=== PATIENT | male | born 1985 | race African-American/Black ===

== ENCOUNTER 2017-06-26 13:05 | Emergency (ER) | payer OTHER ==
[2017-06-26] MEDS ORDERED: NORMAL SALINE 1000 ML 1,000 ML IV ONE (13:42)
[2017-06-26 14:08] LABS: ABSOLUTE BASOPHILS # (AUTO) 0.1 10^3/uL (0.0-0.2); ABSOLUTE LYMPHOCYTES (AUTO) 1.3 10^3/uL (0.5-4.7); ABSOLUTE MONOCYTES (AUTO) 0.2 10^3/uL (0.1-1.4); ABSOLUTE NEUT (AUTO) 5.6 10^3/uL (1.7-8.2); BASOPHILS % (AUTO) 0.9 % (0-2); EOSINOPHILS % (AUTO) 0.2 % (0-6); HEMATOCRIT 45.5 % (37.9-51.0); HEMOGLOBIN 15.2 g/dL (13.5-17.0); LYMPHOCYTES % (AUTO) 17.5 % (13-45); MEAN CORPUSCULAR HEMOGLOBIN 29.4 pg (27.0-33.4); MEAN CORPUSCULAR HGB CONC 33.5 g/dL (32.0-36.0); MEAN CORPUSCULAR VOLUME 88 fl (80-97); MONOCYTES % (AUTO) 2.8 % (3-13); PLATELET COUNT 190 10^3/uL (150-450); RED BLOOD COUNT 5.18 10^6/uL (4.35-5.55); RED CELL DISTRIBUTION WIDTH 13.6 % (11.5-14.0); SEGMENTED NEUTROPHILS % (AUTO) 78.6 % (42-78); TOTAL CELLS COUNTED % (AUTO) 100 %; WHITE BLOOD COUNT 7.2 10^3/uL (4.0-10.5)
--- NOTE | 2017-06-26 14:11 | ER Document Report ---
ED Extremity Problem, Lower - General Chief Complaint: Leg Pain Stated Complaint: CRAMPING Time Seen by Provider: 06/26/17 13:51 Information source: Patient Notes: 31-year-old male incarcerated gentleman who presents today with the onset of a 20 minute episode of cramping to his right arm and right leg, leg much greater than on the last around 20 minutes. He denies a history of this previously. He denies any headache, neck pain, weakness or numbness. Patient was cognizant for the entire episode. Patient denies any fevers, nausea, vomiting, chest pain , and currently denies any weakness or numbness. Patient states he does have a history of seizures but denies any seizure-like activity. Patient states he only had one time episode of seizures in the past and is not currently on any medications. Patient does remember the entire event and currently is symptom- free at this time. TRAVEL OUTSIDE OF THE [place] IN LAST 30 DAYS: No - HPI Patient complains to provider of: Other - See above Occurred: Just prior to arrival Where: Other - See above Onset/Duration: Sudden Quality of pain: Achy Severity: Mild Pain Level: 1 Context: Other - See above Recent injury: No Associated symptoms: Other - See above Exacerbated by: Nothing Relieved by: Nothing - Related Data Allergies/Adverse Reactions: oranges Allergy (Uncoded 08/11/15 11:29) Past Medical History - General Information source: Patient - Social History Smoking Status: Current Every Day Smoker Cigarette use (# per day): No Chew tobacco use (# tins/day): No Smoking Education Provided: No Frequency of alcohol use: None Drug Abuse: None Family History: Reviewed & Not Pertinent Patient has suicidal ideation: No Patient has homicidal ideation: No Renal/ Medical History: Denies: Hx Peritoneal Dialysis - Immunizations Hx Diphtheria, Pertussis, Tetanus Vaccination: Yes Review of Systems - Review of Systems Constitutional: denies: Fever EENT: denies: Eye discharge, Nose discharge Cardiovascular: denies: Chest pain, Palpitations Respiratory: denies: Short of breath Gastrointestinal: denies: Abdomen distended, Vomiting Genitourinary: denies: Dysuria Musculoskeletal: denies: Leg swelling Skin: Other - no hives. denies: Rash Neurological/Psychological: Other - no slurred speech -: Yes All other systems reviewed and negative Physical Exam - Vital signs Vitals: Temp Pulse Resp BP Pulse Ox 97.8 F 69 20 113/73 100 06/26/17 13:53 06/26/17 13:53 06/26/17 13:53 06/26/17 13:53 06/26/17 13:53 Notes: Reviewed vital signs and nursing note as charted by RN. CONSTITUTIONAL: Alert and oriented and responds appropriately to questions. Well -appearing; well-nourished HEAD: Normocephalic; atraumatic EYES: PERRL ENT: Normal nose; no rhinorrhea; moist mucous membranes; pharynx without lesions noted NECK: Supple without meningismus; non-tender CARD: Regular rate and rhythm; no murmurs RESP: Normal chest excursion without splinting or tachypnea; breath sounds clear and equal bilaterally ABD/GI: Normal bowel sounds; non-distended; soft, non-tender BACK: The back appears normal and is non-tender to palpation EXT: Normal ROM in all joints; non-tender to palpation to bilateral upper and lower extremities without calf pain or swelling; no edema SKIN: No acute lesions noted NEURO: CN II through XII are intact. Patient has 5 out of 5 bilateral upper and lower extremity strength with sensation intact light touch PSYCH: The patient's mood and manner are appropriate. Grooming and personal hygiene are appropriate. Course - Re-evaluation Re-evalutation: 06/26/17 14:09 Given the history and physical examination, vital signs as recorded, cognizant of the entire event, cramping mostly to the right leg, no calf pain or leg swelling, currently symptom-free, I believe acute seizure, DVT, to be extremely unlikely. I will obtain basic labs as well as magnesium level to assess for possible muscular spasm. 06/26/17 14:59 Labs as recorded. Calcium is only slightly elevated. Patient still has no cramping or focal neurological deficits. No change in leg examination. Urine drug screen as recorded. Patient does admit to doing cocaine 2 days ago prior to incarceration. A liter of fluid has been given. I have instructed the patient to follow-up with a primary care physician upon release from alf which he states should occur in the next 48 hours with strict return precautions and a recheck of the patient's calcium. On reexamination, pt has no physical symptoms of an elevated calcium. - Vital Signs Vital signs: Temp Pulse Resp BP Pulse Ox 97.8 F 69 20 113/73 100 06/26/17 13:53 06/26/17 13:53 06/26/17 13:53 06/26/17 13:53 06/26/17 13:53 - Laboratory Result Diagrams: 06/26/17 13:51 06/26/17 13:51 Laboratory results interpreted by me: 06/26/17 06/26/17 06/26/17 13:45 13:51 13:51 Seg Neutrophils % 78.6 H Monocytes % 2.8 L Glucose 122 H Calcium 10.9 H Urine Ketones 20 H Urine Urobilinogen 2.0 H Discharge - Discharge Clinical Impression: Muscle spasm, Cocaine abuse, Marijuana abuse, Serum calcium elevated Disposition: HOME, SELF-CARE Additional Instructions: Come back immediately with any return of any spasms, any weakness or numbness, fevers or vomiting, or any other acute problems. Please make sure that you follow-up in around 1-2 weeks for repeat calcium check as we have discussed.
[2017-06-26 14:21] LABS: APPEARANCE,URINE CLEAR; BILIRUBIN,URINE NEGATIVE (NEGATIVE); COLOR,URINE YELLOW; GLUCOSE, URINE NEGATIVE (NEGATIVE); KETONES,URINE 20 mg/dL (NEGATIVE); LEUKOCYTE ESTERASE,URINE NEGATIVE (NEGATIVE); NITRITE,URINE NEGATIVE (NEGATIVE); PROTEIN,URINE NEGATIVE (NEGATIVE); URINE SPECIFIC GRAVITY 1.012
[2017-06-26 14:25] LABS: ALANINE AMINOTRANSFERASE 29 U/L (21-72); ALBUMIN 4.6 g/dL (3.5-5.0); ALKALINE PHOSPHATASE 57 U/L (38-126); ANION GAP 12 (5-19); ASPARTATE AMINO TRANSFERASE 21 U/L (17-59); BILIRUBIN,DIRECT 0.3 mg/dL (0.0-0.4); BILIRUBIN,TOTAL 0.9 mg/dL (0.2-1.3); BLOOD UREA NITROGEN 11 mg/dL (7-20); CALCIUM 10.9 mg/dL (8.4-10.2); CARBON DIOXIDE 25 mmol/L (22-30); CHLORIDE 103 mmol/L (98-107); GLUCOSE 122 mg/dL (75-110); MAGNESIUM 2.1 mg/dL (1.6-2.3); POTASSIUM 4.7 mmol/L (3.6-5.0); SODIUM 139.5 mmol/L (137-145); TOTAL PROTEIN 7.5 g/dL (6.3-8.2)
[2017-06-26 14:35] LABS: URINE AMPHETAMINES SCREEN NEGATIVE; URINE BARBITURATES SCREEN NEGATIVE; URINE BENZODIAZEPINES SCREEN NEGATIVE; URINE COCAINE SCREEN UNCONFIRMED POSITIVE; URINE MARIJUANA (THC) SCREEN UNCONFIRMED POSITIVE; URINE METHADONE SCREEN NEGATIVE; URINE PHENCYCLIDINE SCREEN NEGATIVE
[2017-06-26 15:41] VITALS: BP 130/66
== END 2017-06-26 15:43 | disposition home or self-care (01) ==
LOC: ER 13:05
DX: M62.838 Other muscle spasm (principal); F14.10 Cocaine abuse, uncomplicated; F12.10 Cannabis abuse, uncomplicated; E83.52 Hypercalcemia; M79.604 Pain in right leg; F17.200 Nicotine dependence, unspecified, uncomplicated
CPT/HCPCS: 99284; 96360; 36415; 83735; 85025; 80053; 81001; 80307; J7030

== ENCOUNTER → 2017-07-22 | Outpatient (CLI) | payer OTHER | LOC: LAB 08:52 | PROVIDERS: ATTEND Internal Medicine Pulmonary Disease | DX: R93.5 Abnormal findings on diagnostic imaging of other abdominal regions, including retroperitoneum (principal) | CPT/HCPCS: 36415; 82330; 83970 ==